=== PATIENT | female | born 2000 | race Two or more races ===

== ENCOUNTER 2024-10-11 13:45 | Inpatient (IN) | payer MEDICAID, SELFPAY ==
[2024-10-11] VITALS (11 sets, daily range): BP systolic 101–128; BP diastolic 56–84; PULSE 68–99; RESP 18–99; TEMP 36.6; O2SAT 98; BMI 29.0
[2024-10-11 14:21] LABS: ROM Kit Lot # 57805053; ROM Swab Mixed By: AYONJ; Rupture of Fetal Membranes Positive (Negative); Swb Mxed in Solvent 1 min? Yes
[2024-10-11] MEDS: MINERAL OIL 30 ML UDC TOP (14:43)
[2024-10-11] MEDS: METHYLERGONOVINE INJ 0.2 MG/ML VIAL IM (14:54)
--- NOTE | 2024-10-11 15:17 | PD.LDHP ---
Documentation for date of: 10/11/24 OB Labor/Induct. HPI History of Present Illness : 2 Para: 1 LIT: 10/21/24 Gestational Age (weeks): 38 Gestational Age (days): 4 History of present illness: The patient, a 24-year-old at 38 weeks and 4 days, presents to labor and delivery triage with chief complaints of contractions and leakage of fluid that started earlier this morning. She has been receiving care, and her has been uncomplicated so far. The patient reports a history of precipitous delivery in her previous . Review of systems is negative. On presentation, patient was noted to be 7 centimeters dilated with full effacement of cervix and 0 station. Diagnostic Test Results and Labs: - Blood group: O-positive - Antibody screen: Negative - Rubella: Equivocal - Hepatitis B: Negative - Hepatitis C: Negative - HIV: Negative - RPR (Rapid Plasma Reagin): Non-reactive - GBS (Group B Streptococcus): Negative Review of Systems Review of Systems Systems Reviewed: All systems reviewed, normal except as documented Meds Home Medications and Allergies Home Medications ?Medication ?Instructions ?Recorded ?Confirmed ?Type vits no.126-ferrous fum 1 tab PO QDAY 10/11/24 10/11/24 History 28 mg iron-folic acid 800 mcg tablet (Classic ) Allergies Allergy/AdvReac Type Severity Reaction Status Date / Time No Known Allergies Allergy Verified 10/11/24 14:34 OB Exam Physical Exam Vital signs: Temp Pulse Resp BP 97.9 F 76 18 101/59 L 10/11/24 14:03 10/11/24 15:06 10/11/24 14:03 10/11/24 15:06 Constitutional Constitutional: no acute distress Routine HEENT Exam Head: Present normocephalic and atraumatic Eye: Present EOMI and PERRL ENT: Present mucous membranes moist Routine Neck Exam Neck: Present supple and trachea midline Routine Cardiovascular Exam Cardiovascular: Present RRR Routine Abdominal Exam Abdominal: Present soft and normoactive bowel sounds Detailed Labor and Delivery Exam Comments: - Cervical dilation: 7 centimeters - Cervical effacement: 100% - station: 0 - Estimated weight: 7.5 pounds by Dalton's maneuvers Routine Extremities Exam Extremities: Present full ROM Routine Skin Exam Skin: Present intact, dry and warm Routine Neurological Exam Neurological: Present alert, oriented X3 and CN II-XII intact Routine Psychiatric Exam Psychiatric: Present normal affect and normal thought process OB Assessment & Plan Assessment and Plan (1) Active labor at term: Status: Acute Assessment and plan: Labor at 38 weeks 4 days: - Admit to inpatient labor and delivery - Continuous heart rate monitoring (baseline 135, moderate variability, 15x15 accelerations, no decelerations) - Monitor contractions every 2-3 minutes - Pain management as desired by patient - Cervical dilation 7 cm, 100% effacement, 0 station on presentation Rupture of Membranes: - IV access and fluids (Lactated Ringer's at 125 cc/hr) GBS Negative: - No intrapartum antibiotic prophylaxis needed Blood Group: - O-positive, antibody screen negative - No Rh immunoglobulin administration needed History of Precipitous Delivery: - Prepare for delivery - hemorrhage medications on standby Estimated Weight: - 7.5 pounds by Dalton's - Monitor for distress or complications during labor Lab Results: - Rubella equivocal, hepatitis B/C negative, HIV negative, RPR non-reactive - MMR after delivery Care: - Regular care at [facility] - Coordinate care with primary obstetric provider Status: - Uncomplicated so far - Monitor for new developments during labor (2) (normal spontaneous vaginal delivery): Status: Acute
--- NOTE | 2024-10-11 15:20 | OBDSUM_ITS ---
Data ([facility]) Data Para: 1 Delivery Data ([facility]) Labor Data ROM Date: 10/11/24 ROM Time: 13:20 Rupture Type: SROM Amniotic Fluid: Clear Delivery Data Labor Onset Stage 1 Date: 10/11/24 Labor Onset Stage 1 Time: 13:20 Labor Onset Stage 2 Date: 10/11/24 Labor Onset Stage 2 Time: 14:40 Delivery Date: 10/11/24 Delivery Time: 14:48 Placenta Delivery Date: 10/11/24 Placenta Delivery Time: 14:51 Delivered by: Landry Schwab Delivery nurse: Tali Live Other staff at delivery: 2nd Nurse Other staff at delivery: Arlene Mario Delivery Method Delivery: Vaginal Delivery Type: Spontaneous Anesthesia Type Primary Anesthesia: None [place] Data ([facility]) [place] Data Infant Gender: Female Infant Weight Grams: 3350 1 Minute Total: 9 5 Minute Total: 10
[2024-10-11] MEDS: BENZO/LANO/ALOE (Dermoplast) 60 GM CAN 1 SPRAY TOP (15:21)
[2024-10-11] MEDS: TRANEXAMIC ACID 1,000 MG IVPB 1,000 MG/100 ML BAG 200 MG IV (15:22)
[2024-10-11 16:19] LABS: Basophils % (Auto) 0 % (0-2.5); Eosinophils % (Auto) 0 % (0-10); Hematocrit 31.9 % (36.0-46.0); Hemoglobin 10.7 g/dL (12.0-16.0); Immature Granulocytes % (Auto) 1 % (0-0); Immature Granulocytes Auto 0.07 Thou/mm3 (0.00-0.00); Lymphocytes # (Auto) 1.2 Thou/mm3 (1.0-4.8); Lymphocytes % (Auto) 8 % (10-50); Mean Corpuscular HGB Conc 33.5 g/dl (31.0-37.0); Mean Corpuscular Hemoglobin 30.7 pg (25.0-35.0); Mean Corpuscular Volume 91 fL (80-100); Monocytes # (Auto) 0.5 Thou/mm3 (0.0-0.8); Monocytes % (Auto) 3 % (0-12); Neutrophils # (Auto) 13.4 Thou/mm3 (1.8-7.7); Neutrophils % (Auto) 88 % (37-80); Nucleated Red Blood Cell % 0 /100 WBC (0); Platelet Count 145 Thou/mm3 (140-440); RDW Standard Deviation 43.8 fL (36.4-46.3); Red Blood Count 3.49 Miln/mm3 (4.00-5.20); White Blood Count 15.2 Thou/mm3 (3.6-11.0)
[2024-10-11 17:05] LABS: Syphilis Nonreactive (Nonreactive)
[2024-10-12 00:12] VITALS: BP 100/62; PULSE 71; RESP 16; TEMP 36.8; O2SAT 98
[2024-10-12 04:35] VITALS: BP 109/71; PULSE 70; RESP 16; TEMP 36.5; O2SAT 98
[2024-10-12 05:31] LABS: Basophils # (Auto) 0.1 Thou/mm3 (0.0-0.2); Basophils % (Auto) 0 % (0-2.5); Eosinophils # (Auto) 0.2 Thou/mm3 (0.0-0.5); Eosinophils % (Auto) 1 % (0-10); Hematocrit 29.3 % (36.0-46.0); Hemoglobin 9.9 g/dL (12.0-16.0); Immature Granulocytes % (Auto) 1 % (0-0); Immature Granulocytes Auto 0.09 Thou/mm3 (0.00-0.00); Lymphocytes # (Auto) 3.2 Thou/mm3 (1.0-4.8); Lymphocytes % (Auto) 22 % (10-50); Mean Corpuscular HGB Conc 33.8 g/dl (31.0-37.0); Mean Corpuscular Hemoglobin 31.1 pg (25.0-35.0); Mean Corpuscular Volume 92 fL (80-100); Monocytes # (Auto) 0.9 Thou/mm3 (0.0-0.8); Monocytes % (Auto) 6 % (0-12); Neutrophils # (Auto) 9.9 Thou/mm3 (1.8-7.7); Neutrophils % (Auto) 69 % (37-80); Nucleated Red Blood Cell % 0 /100 WBC (0); Platelet Count 159 Thou/mm3 (140-440); Red Blood Count 3.18 Miln/mm3 (4.00-5.20); White Blood Count 14.3 Thou/mm3 (3.6-11.0)
[2024-10-12 08:00] VITALS: BP 108/69; PULSE 78; RESP 15; TEMP 37.1; O2SAT 98
--- NOTE | 2024-10-12 10:35 | ESPR_ITS ---
Subjective Subjective Interval history: Delivery type: Patient doing well this morning. No acute complaints. Ambulating, tolerating p.o. and voiding without difficulty. HTN/Pre-Eclampsia screen: No chest pain, shortness of breath, headache, visual changes, epigastric or right upper quadrant pain. Breast-feeding, lochia diminishing. Bowel: Flatus+/ BM+ Exam Vital Signs Temp Pulse Resp BP Pulse Ox O2 Del Method 98.7 F 78 15 108/69 98 Room Air 10/12/24 08:00 10/12/24 08:00 10/12/24 08:00 10/12/24 08:00 10/12/24 08:00 10/12/24 08:00 Constitutional Constitutional: no acute distress Routine HEENT Exam Head: Present normocephalic and atraumatic Eye: Present EOMI and PERRL ENT: Present mucous membranes moist Routine Neck Exam Neck: Present supple and trachea midline Routine Respiratory Exam Respiratory: Present chest non-tender, lungs clear, normal breath sounds and no resp distress Routine Cardiovascular Exam Cardiovascular: Present RRR Routine Abdominal Exam Abdominal: Present soft and normoactive bowel sounds Routine Extremities Exam Extremities: Present full ROM Routine Skin Exam Skin: Present intact, dry and warm Routine Neurological Exam Neurological: Present alert, oriented X3 and CN II-XII intact Routine Psychiatric Exam Psychiatric: Present normal affect and normal thought process Objective Labs 10/12/24 04:28 Labs: Laboratory Results - last 24 hr 10/11/24 10/11/24 10/12/24 14:04 15:25 04:28 WBC 15.2 H 14.3 H RBC 3.49 L 3.18 L Hgb 10.7 L 9.9 L Hct 31.9 L 29.3 L MCV 91 92 MCH 30.7 31.1 MCHC 33.5 33.8 RDW Std Deviation 43.8 44.0 Plt Count 145 159 Neut % (Auto) 88 H 69 Lymph % (Auto) 8 L 22 Carbon % (Auto) 3 6 Eos % (Auto) 0 1 Baso % (Auto) 0 0 Neut # (Auto) 13.4 H 9.9 H Lymph # (Auto) 1.2 3.2 Carbon # (Auto) 0.5 0.9 H Eos # (Auto) 0.0 0.2 Baso # (Auto) 0.0 0.1 Immature Gran # (Auto) 0.07 H 0.09 H Absolute Nucleated RBC 0.00 0.00 Immature Gran % 1 H 1 H Nucleated RBC % 0 0 Membrane Rupture Positive A Syphilis Serology Nonreactive Blood Type O Positive Antibody Screen NEGATIVE Blood Bank Wristband ID Yes Assessment & Plan Problem List (1) Active labor at term: Status: Acute (2) (normal spontaneous vaginal delivery): Status: Acute Assessment and plan: PPD/POD#1 1. Continue routine care 2. Transition to PO meds. 3. Encourage to ambulate/ breast-feed 4. Anticipate discharge home today. Time Spent With Patient Time: Total time spent is greater than 50% in coordination of care (as documented) at patient's floor/unit and/or counseling patient:
--- NOTE | 2024-10-12 10:36 | PD.LDDS ---
DS: Providers Provider Date of admission: 10/11/24 15:01 Primary care physician: Physician No Primary/Family Admitting Provider: Landry Schwab MD Attending Provider on Admission: Landry Schwab MD Consults: 10/11/24 15:12 Referral Routine Comment: Attending Provider on DC: Landry Schwab MD Discharging Provider: Landry Schwab MD DS: Diagnosis Discharge Diagnosis (1) (normal spontaneous vaginal delivery): Status: Acute (2) Active labor at term: Status: Acute Problem List Completed Was Problem List Reviewed/Reconciled?: Yes Summary/Hosp Course Brief History: The patient, a 24-year-old at 38 weeks and 4 days, presents to labor and delivery triage with chief complaints of contractions and leakage of fluid that started earlier this morning. She has been receiving care, and her has been uncomplicated so far. The patient reports a history of precipitous delivery in her previous . Review of systems is negative. On presentation, patient was noted to be 7 centimeters dilated with full effacement of cervix and 0 station. Diagnostic Test Results and Labs: - Blood group: O-positive - Antibody screen: Negative - Rubella: Equivocal - Hepatitis B: Negative - Hepatitis C: Negative - HIV: Negative - RPR (Rapid Plasma Reagin): Non-reactive - GBS (Group B Streptococcus): Negative Time Spent with Patient Time attestation: Total time spent providing and/or coordinating discharge services: Exam Vital Signs Temp Pulse Resp BP Pulse Ox O2 Del Method 98.7 F 78 15 108/69 98 Room Air 10/12/24 08:00 10/12/24 08:00 10/12/24 08:00 10/12/24 08:00 10/12/24 08:00 10/12/24 08:00 Discharge Plan Plan Patient Disposition: HOME (Self Care) Patient condition on transfer: Stable Prescriptions/Referrals Prescriptions/Med Rec: New ibuprofen 400 mg Tablet 800 mg PO Q8HR PRN (Reason: Pain Scale 4-6 (Moderate) 10 Days Qty: 40 0RF docusate sodium 100 mg Capsule 100 mg PO QDAY 30 Days Qty: 30 0RF Continued Classic 28 mg iron- 800 mcg tablet 1 tab PO QDAY Patient Comments: TAKE 1 TABLET BY MOUTH EVERY DAY Referrals: Landry Schwab MD [Physician] - No Primary/Family,Physician [Primary Care Provider] - Patient/Caregiver Discharge Instructions Meds to Beds: Yes Discharge Activity: activity as tolerated Education Materials: After a Vaginal , Breast Care After , Incision Care After Vaginal , : Caring for Yourself, Feel Healthy After Print Language: Serbian Stand Alone Forms: Denisha Award Info., Patient Portal Info Letter Discharge Order Discharge Orders: Discharge (Routine); Ordered 10/12/24 Ordered By: Landry Schwab Planned Discharge Date 10/12/24
[2024-10-12 12:00] VITALS: BP 111/70; PULSE 66; RESP 15; TEMP 36.9; O2SAT 99
--- NOTE | 2024-10-25 12:18 | ESHP_ITS ---
ERROR DT: 11:23:40 TT: 12:15:00 Ref: [id number] - TID: [id number] MTDD
== END 2024-10-12 15:10 | disposition home or self-care (01) | DRG 560 ==
LOC: S4SX 15:01 → S4NX 17:15
PROVIDERS: Specialist; Admitting Provider Obstetrics & Gynecology; Visit Provider Obstetrics & Gynecology
DX: O42.02 Full-term premature rupture of membranes, onset of labor within 24 hours of rupture (principal); Z37.0 Single live birth; Z3A.38 38 weeks gestation of pregnancy
CPT/HCPCS: 36415; 59409; 84112; 85025; 86780; 86850; 86900; 86901; J2210; J3490; A9270

== ENCOUNTER 2025-08-13 16:00 | Outpatient (RCR) | payer MEDICAID, SELFPAY ==
--- NOTE | 2025-08-06 12:44 | PTNOTE_ITS ---
PT OP Initial Eval Patient Information Outpatient Physical Therapy Treatment Date: 08/06/25 Visit Reasons: low back pain Medical Diagnosis: Back Pain Treatment Dx #1: Back Pain Start of Care: 08/06/25 Date of Onset: 2 years ago Smoking Status Smoking Status: Never smoker Initial Assessment Subjective: Pt is a 25 y/o female reports of chronic back pain (04/23) with intermittent numbness down her legs. Pt's xray negative no MRI has been done. Pt has limitation with sitting, standing, chores, working out, running, lifting, and recreational activities. Objective: L/S AROM: all motions are WFL with end range pain into extension and right side bending Hip PROM: all motions are WFL Hip MMTs: grossly 3+/5 Special Test (+) SLR Palpation: TTP and hypomobile right L4 facets Assessment: Pt demonstrate back and BLE pain leading to difficulty with ADLs. Pt will benefit from physical therapy to increase ROM, strength, and work on core stability. Short Term and Prison Goals 1) Increase L/S AROM WNL in 6 wks to be able to perform chores 2) Decrease back pain to 2/10 in 6 wks to be able to resume working out 3) Increase core strength WFL in 6 wks to be able to perform recreational activities 4) Increase hip MMTs grossly to 4-/5 in 6 wks to be able to walk more than 30 mins 5) Indep with HEP Treatment Plan 1) Manual Therapy 2) Therapeutic Activities 3) Therapeutic Exercises 4) Modalities (ice, heat, traction) Frequency and Duration: 2 x wk for 6 wks Certification Dates: 08/06/25 to 11/06/25 Procedure Charges OP PT Eval Mod Complex 30 minutes: Yes
--- NOTE | 2025-08-11 16:18 | PT.ODAYNRPT ---
PT Outpatient Daily Note OP Daily Note Outpatient Physical Therapy Treatment Date: 08/11/25 Visit Reasons: low back pain Subjective: Pt c/o LBP and some tingling in L LE. Objective: Please see flow sheet for ther ex list. Assessment: Pt instructed on lifting mechanics, demonstrates trunk rotation with golfers lift exercise but corrects post verbal and tactile cues. Plan: Continue with poC. Length of Time (minutes) of Treatment: 30 Minutes Procedure Charges Therapeutic Exercise 30 minutes: Yes
--- NOTE | 2025-08-13 16:36 | PT.ODAYNRPT ---
PT Outpatient Daily Note OP Daily Note Outpatient Physical Therapy Treatment Date: 08/13/25 Visit Reasons: low back pain Subjective: Pt reports compliance with HEP. Objective: Please see flow sheet for ther ex list. Assessment: Pt able to replicate repeated lumbar extension in prone indicating compliance with HEP. Plan: Continue with POC. Length of Time (minutes) of Treatment: 30 Minutes Procedure Charges Therapeutic Exercise 30 minutes: Yes
== END 2025-08-14 23:59 | disposition home or self-care (01) ==
LOC: CPTX 16:00
PROVIDERS: PCP Nurse Practitioner; Referring Provider Nurse Practitioner; Visit Provider Nurse Practitioner
DX: M54.50 Low back pain, unspecified (principal); R20.0 Anesthesia of skin; G89.29 Other chronic pain
CPT/HCPCS: 97110; 97162

== ENCOUNTER 2025-09-09 14:00 | Outpatient (RCR) | payer MEDICAID, SELFPAY ==
--- NOTE | 2025-08-17 15:30 | PT.ODAYNRPT ---
PT Outpatient Daily Note OP Daily Note Outpatient Physical Therapy Treatment Date: 08/17/25 Visit Reasons: low back pain Subjective: Pt's back is okay. Pt likes to heat with exercises Objective: see flow chart for list of ther ex performed Assessment: added more therband core exercises with good tolerance Plan: Continue with PT Length of Time (minutes) of Treatment: 30 Minutes Procedure Charges Therapeutic Exercise 30 minutes: Yes
--- NOTE | 2025-08-19 14:40 | PT.ODAYNRPT ---
PT Outpatient Daily Note OP Daily Note Outpatient Physical Therapy Treatment Date: 08/19/25 Visit Reasons: low back pain Subjective: Pt's back was really sore from last session. Pt mentioned the change in core exercises in therapy may have cause the soreness. Pt feels that she hyperextend the back when she lifts her kids Objective: Please see flow chart for list of ther ex performed Assessment: review and taught neutral spine with lifting and in standing. Pt demonstrate and will need review to understand the concept. No resistance core exercises done today since patient reported of excessive DOMS last session Plan: Continue with PT Length of Time (minutes) of Treatment: 30 Minutes Procedure Charges Therapeutic Exercise 30 minutes: Yes
--- NOTE | 2025-08-28 14:46 | PT.ODAYNRPT ---
PT Outpatient Daily Note OP Daily Note Outpatient Physical Therapy Treatment Date: 08/28/25 Visit Reasons: low back pain Subjective: Pt reports progress with LBP, has been compliant with HEP. Objective: Please see flow sheet for ther ex list. Assessment: Pt able to replicate HEP lumbar extension with good technique indicating compliance with HEP. Plan: Continue with poC. Length of Time (minutes) of Treatment: 30 Minutes Procedure Charges Therapeutic Exercise 30 minutes: Yes
--- NOTE | 2025-09-02 12:45 | PT.ODAYNRPT ---
PT Outpatient Daily Note OP Daily Note Outpatient Physical Therapy Treatment Date: 09/02/25 Visit Reasons: low back pain Subjective: Pt's back is better. Pt has been more mindful now with lifting her young ones which has helped. Objective: Please see flow chart for list of ther ex performed Assessment: cues to engage glute prior to bridge exercise to decrease lumbar hyperextension Plan: Continue with PT Length of Time (minutes) of Treatment: 30 Minutes Procedure Charges Therapeutic Exercise 30 minutes: Yes
--- NOTE | 2025-09-07 14:31 | PT.ODAYNRPT ---
PT Outpatient Daily Note OP Daily Note Outpatient Physical Therapy Treatment Date: 09/07/25 Visit Reasons: low back pain Subjective: Pt reports progress with l/s symptoms. Objective: Please see flow sheet for ther ex list. Assessment: Progressing core strengthening, pt able to comply with maintain spine in neutral. Plan: Continue with POC, assess response to progression of interventions. Length of Time (minutes) of Treatment: 30 Minutes Procedure Charges Therapeutic Exercise 30 minutes: Yes
--- NOTE | 2025-09-09 15:01 | PT.ODAYNRPT ---
PT Outpatient Daily Note OP Daily Note Outpatient Physical Therapy Treatment Date: 09/09/25 Visit Reasons: low back pain Subjective: Pt's back is fine and much better. Pt has been more careful and keeping the back neutral with lifting the little ones or with chores Objective: Please see flow chart for list of ther ex performed Assessment: progressing patient to more core strengthening. Tactile cues to keep neutral spine with level 2 planks and SB rollout Plan: Continue with PT Length of Time (minutes) of Treatment: 30 Minutes Procedure Charges Therapeutic Exercise 30 minutes: Yes
== END 2025-09-13 23:59 | disposition home or self-care (01) ==
LOC: CPTX 14:00
PROVIDERS: PCP Nurse Practitioner; Referring Provider Nurse Practitioner; Visit Provider Nurse Practitioner
DX: M54.50 Low back pain, unspecified (principal); M79.605 Pain in left leg; M79.604 Pain in right leg; G89.29 Other chronic pain
CPT/HCPCS: 97110

== ENCOUNTER 2025-09-21 14:30 | Outpatient (RCR) | payer MEDICAID, SELFPAY ==
--- NOTE | 2025-09-16 16:01 | PT.ODAYNRPT ---
PT Outpatient Daily Note OP Daily Note Outpatient Physical Therapy Treatment Date: 09/16/25 Visit Reasons: low back pain Subjective: Pt reports LBP is improving, continues to practice her posture and squatting mechanics. Objective: Please see flow sheet for ther ex list. Assessment: Pt demonstrates slight lumbar extension during planks, corrects post cues and decrease holding time during exercise. Plan: Continue with pOC. Length of Time (minutes) of Treatment: 30 Minutes Procedure Charges Therapeutic Exercise 30 minutes: Yes
--- NOTE | 2025-09-18 15:49 | PT.ODAYNRPT ---
PT Outpatient Daily Note OP Daily Note Outpatient Physical Therapy Treatment Date: 09/18/25 Visit Reasons: low back pain Subjective: Pt reports LBP is doing better. Objective: Please see flow sheet for ther ex list. Assessment: Pt able to perform added interventions with good technique. Plan: Continue with poC. Length of Time (minutes) of Treatment: 30 Minutes Procedure Charges Therapeutic Exercise 30 minutes: Yes
--- NOTE | 2025-09-21 16:07 | PT.ODAYNRPT ---
PT Outpatient Daily Note OP Daily Note Outpatient Physical Therapy Treatment Date: 09/21/25 Visit Reasons: low back pain Subjective: Pt reports progress with LBP. Objective: Please see flow sheet for ther ex list. Assessment: Pt demonstrates improved core endurance indicated by improved technique with ther ex pt able to maintain spine in neutral. Plan: pt to follow up with PTOR for note. Length of Time (minutes) of Treatment: 30 Minutes Procedure Charges Therapeutic Exercise 30 minutes: Yes
--- NOTE | 2025-09-23 11:51 | PTNOTE_ITS ---
PT OP Progress/Discharge Note Date of Service: 09/23/25 Progress Note/DC Note Progress Note/Discharge Note: DC Note Patient Information Visit Reasons: low back pain Medical Diagnosis: M54.50 Treatment Dx #1: Back Pain Service Continue Service or Discharge: Discharge Discharge Date: 09/23/25 Status Subjective: Pt's back has been feeling better, however, still notice intermittent pain down the legs. Pt has been able to stand, walk, take care of her kids, and perform ADLs with less limitation. Objective: L/S AROM: all motions are WFL Hip PROM: all motions are WNL Hip MMTs: grossly 4-/5 Special Test (+) SLR Assessment: Pt demonstrate improved L/S mobility, hat body sorter, and core strength, however, continue to experience leg pain leading to difficulty with certain ADLs. At this time Pt will no longer benefit from physical therapy due to plateau towards goals and complated /12 sessions. Recommend lumbar spine MRI to help rule in/out nature of pain. Pt was instructed on HEP last session and educated to continue exercises to maintain overall mobility. Pt performed all exercises safely, thank you for your referrals. Plan: D/C home with HEP and follow up with MD [facility] Recommend lumbar spine MRI
== END 2025-10-14 23:59 | disposition home or self-care (01) ==
LOC: CPTX 14:30
PROVIDERS: PCP Nurse Practitioner; Referring Provider Nurse Practitioner; Visit Provider Nurse Practitioner
DX: M54.50 Low back pain, unspecified (principal); R20.0 Anesthesia of skin; G89.29 Other chronic pain
CPT/HCPCS: 97110